=== PATIENT | female | born 1955 | race Caucasian/White ===

== ENCOUNTER 2016-12-03 09:14 | Observation (INO) ==
[2016-12-03] MEDS ORDERED: 0.9 % Sodium Chloride 1,000 ML ONE ×2 (09:31→14:25)
[2016-12-03] MEDS ORDERED: Ondansetron 4 MG/2 ML VIAL ONE (09:31)
[2016-12-03] MEDS ORDERED: Aspirin 81 MG TAB.CHEW PO ONE (09:34)
[2016-12-03] MEDS ORDERED: 0.9 % Sodium Chloride 1,000 ML IVC ONE ×2 (09:39→14:22)
--- NOTE | 2016-12-03 09:40 | Emergency Department Note ---
Disposition Clinical Impression: Acute kidney injury Chest pain Qualifiers: Chest pain type: other chest pain Qualified Code(s): R07.89 - Other chest pain Hypotension Qualifiers: Hypotension type: other hypotension type Qualified Code(s): I95.89 - Other hypotension Disposition: Admitted As Inpatient Condition: Fair Time of Disposition: 12:55 General Adult HPI - General Chief complaint: ED Chest Pain Stated complaint: epigastric pain Time Seen by Provider: 12/03/16 09:25 Source: patient Mode of arrival: ambulatory Limitations: no limitations Nursing Notes Reviewed: Yes Vital Signs Reviewed: Yes - History of Present Illness HPI Narrative: Patient is a 61-year-old female with a Hx of HTN, Hypercholesterolemia and GERD presents with a complaint of chest pain that started at 8:30 this morning. States she left for work and had a pH and she felt fine when she arrived to work she had a stabbing sharp substernal pain that came on suddenly, 8 out of 10 , nonradiating, and nothing makes the pain feel better or worse. She states she has nausea and and SOB, no vomiting. She thinks the pain is related to her GERD. While the patient was in triage she was having a blood pressure recording of 70/50 patient was brought back to the emergency department in the emergency department her blood pressure was still 70/50s we were having difficulty getting a recording. However, we were able to obtain a reading that was 150/80. Patient denies any cardiac history. Onset (ago): hour(s) Location: chest Radiation: non-radiation Pain Severity: moderate Pain Scale: 9 Quality: stabbing Consistency: constant Improves with: nothing Worsens with: nothing Associated symptoms: Reports: chest pain, nausea/vomiting, shortness of breath. Denies: cough, diaphoresis, fever/chills, headaches Treatments Prior to Arrival: none - Related Data Home Medications Medication Instructions Recorded Confirmed Aspirin [Lo-Dose Aspirin EC] 81 mg PO HS 12/03/16 12/03/16 Budesonide/Formoterol 80/4.5 2 gm IH BIDR 12/03/16 12/03/16 [Symbicort 80/4.5] Esomeprazole Magnesium [Nexium] 20 mg PO DAILY 12/03/16 12/03/16 Fexofenadine HCl [Allergy Relief] 180 mg PO DAILY 12/03/16 12/03/16 Gabapentin [Neurontin] 600 mg PO HS 12/03/16 12/03/16 Guaifenesin [Mucinex] 600 mg PO BID PRN 12/03/16 12/03/16 Ipratropium/Albuterol Neb [Duoneb] 3 ml IH Q6HR PRN 12/03/16 12/03/16 Lisinopril [Zestril] 40 mg PO HS 12/03/16 12/03/16 Quetiapine Fumarate [SEROquel] 200 mg PO HS 12/03/16 12/03/16 Ranitidine HCl [Zantac] 300 mg PO DAILY 12/03/16 12/03/16 Rosuvastatin Calcium [Crestor] 10 mg PO HS 12/03/16 12/03/16 hydroCHLOROthiazide 12.5 mg PO HS 12/03/16 12/03/16 [Hydrochlorothiazide] Allergies Allergy/AdvReac Type Severity Reaction Status Date / Time No Known Allergies Allergy Verified 11/25/16 08:03 All systems ED: reviewed and negative except as stated. Constitutional: Denies: fever, chills Cardiovascular: Reports: chest pain, palpitations. Denies: syncope Respiratory: Reports: dyspnea. Denies: cough, wheezes Gastrointestinal: Reports: abdominal pain, nausea. Denies: vomiting Musculoskeletal: Denies: back pain Past Medical History - Past Medical History Medical history: Reports: fibromyalgia, GERD, hypertension Surgical history: Reports: hysterectomy, other Psychiatric history: Reports: bipolar, depression - Social History Smoking Status: Never smoker Smokeless Tobacco Status: No Alcohol use: Reports: none Drug use: Reports: none Physical Exam Upon entering the room the patient appeared to be in moderate distress she was sitting upwards holding her fists to her chest and complaining of a sharp pain that appeared diaphoretic or pale at the time. She was hypotensive at 70/50. - General Limitations: no limitations General appearance: alert, in distress - Head Head exam: atraumatic, normocephalic, normal inspection - Eye Eye exam: Present: normal appearance, PERRL, EOMI - ENT ENT exam: normal exam, normal oropharynx, mucous membranes dry - Neck Neck exam: Present: normal inspection, full ROM, trachea midline. Absent: tenderness - Chest Chest inspection: Present: symmetric chest wall rise, tenderness (Pt had reproducible tenderness) - Respiratory Respiratory exam: Present: normal lung sounds bilaterally, respiratory distress. Absent: wheezes, stridor - Cardiovascular Cardiovascular exam: Present: regular rate, normal rhythm, normal heart sounds - Expanded Cardiovascular Exam Peripheral pulses: 2+: radial (R), radial (L), dorsalis pedis (R), dorsalis pedis (L) - Abdominal Exam Abdominal exam: Present: soft, tenderness, normal bowel sounds. Absent: guarding, rebound, rigidity Abdominal tenderness: Present: diffuse - Extremities Exam Extremities exam: Present: normal inspection, full ROM, normal capillary refill - Neurological Exam Neurological exam: Present: alert, oriented X3 - Psychiatric Psychiatric exam: Present: normal affect, anxious - Skin Skin exam: Present: warm, dry, intact, normal color. Absent: pallor Course Course Narrative: Patient is a 61-year-old female complaining of sudden onset chest pain that is sharp and nonradiating with associated nausea and shortness of breath. As far as we know she does not have a cardiac history. Patient's low blood pressure was 70/50's in triage. I plan to pursue a cardiac workup on this patient also did a CT of angiogram to rule out dissection and CT abdomen. Pt started on 2 L of normal saline. Given zofran IV for nausea. - Reevaluation(s) Reevaluation #1: Pt blood pressure is still 70's/50's after 1 liter of NS. Pain is a 2/[address] for patient's imaging and asked them to take the patient now. Time: 10:22 Reevaluation #2: Pt is back from CT. Blood pressure is 97/51 with second liter of NS going in. Time: 11:09 Reevaluation #3: Pt is resting comfortably in bed sleeping. Her blood pressure is 100/52. Time: 11:33 Additional Reevaluation(s): I spoke with the patient and discussed her lab findings and imaging. I discussed the plan to admit the patient for further evaluation of her chest pain. Patient agrees with the plan. - Consultations Consultation #1: I spoke with Dr. Valle, he agreed to admit the patient. Vital Signs Temperature 97.9 F 12/03/16 09:14 Pulse Rate 93 12/03/16 09:14 Respiratory Rate 18 12/03/16 09:14 Blood Pressure 74/54 12/03/16 09:14 O2 Sat by Pulse Oximetry 96 12/03/16 09:14 Temperature 97.9 F 12/03/16 14:46 Pulse Rate 93 12/03/16 14:46 Respiratory Rate 17 12/03/16 14:46 Blood Pressure 98/49 12/03/16 14:46 O2 Sat by Pulse Oximetry 98 12/03/16 14:46 Oxygen Delivery Oxygen Delivery Nasal Cannula Medical Decision Making - Medical Records Medical records reviewed: Yes I reviewed the patient's medical records. - Lab Data Lab results reviewed: Yes I reviewed the patient's lab results. Result diagrams: 12/03/16 09:35 12/03/16 09:35 Lab Results 12/03/16 12/03/16 12/03/16 Range/Units 09:35 09:35 09:35 WBC 9.6 (4.3-11.1) K/mcL RBC 4.21 (3.82-4.97) M/mcL Hgb 13.0 (11.5-15.4) g/dL Hct 37.6 (35.3-44.9) % MCV 89.3 (83.0-100.0) fL MCH 30.9 (28.0-33.3) pg MCHC 34.6 (31.6-35.5) g/dL RDW 12.1 (11.5-14.5) % Plt Count 309 (140-400) K/mcL MPV 9.3 L (9.4-12.4) fL Immature Gran % 1.0 (0-4) % Seg Neutrophils % 56.3 % Lymphocytes % 30.7 % Monocytes % 7.6 % Eosinophils % 3.7 % Basophils % 0.7 % Neutrophils # 5.4 (1.6-8.9) K/mcL Lymphocytes # 2.9 (0.6-4.6) K/mcL Monocytes # 0.7 (0.0-1.3) K/mcL Eosinophils # 0.4 (0.0-0.6) K/mcL Basophils # 0.1 (0.0-0.2) K/mcL PT 11.4 (9.4-12.1) Seconds INR 1.1 APTT 31.3 (26.0-36.0) Seconds Sodium 136 (136-145) mEq/L Potassium 4.0 (3.5-4.5) mEq/L Chloride 104 (98-109) mEq/L Carbon Dioxide 21 (19-29) mEq/L BUN 29 H (7-20) mg/dL Creatinine 1.54 H (0.57-1.11) mg/dL Est GFR ( Amer) 41 L (> 60) Est GFR (Non-Af Amer) 34 L (> 60) BUN/Creatinine Ratio 19 (6-26) Glucose 140 H (70-99) mg/dL Calculated Osmolality 290 (280-300) Calcium 9.5 (8.6-10.8) mg/dL Total Bilirubin 0.3 (0.2-1.2) mg/dL Direct Bilirubin 0.1 (0.0-0.5) mg/dL Indirect Bilirubin 0.2 (0.0-1.2) mg/dL AST 17 (5-34) Units/L ALT 29 (0-55) Units/L Alkaline Phosphatase 75 (38-126) Units/L Troponin I (0-0.03) ng/mL Serum Total Protein 6.9 (6.0-8.3) g/dL Albumin 3.5 (3.5-5.0) g/dL Globulin 3.4 (2.4-3.5) g/dL Albumin/Globulin Ratio 1.0 L (1.1-2.2) Amylase 43 (25-125) Units/L Lipase 25 (8-78) Units/L 07/19/17 Range/Units 09:35 WBC (4.3-11.1) K/mcL RBC (3.82-4.97) M/mcL Hgb (11.5-15.4) g/dL Hct (35.3-44.9) % MCV (83.0-100.0) fL MCH (28.0-33.3) pg MCHC (31.6-35.5) g/dL RDW (11.5-14.5) % Plt Count (140-400) K/mcL MPV (9.4-12.4) fL Immature Gran % (0-4) % Seg Neutrophils % % Lymphocytes % % Monocytes % % Eosinophils % % Basophils % % Neutrophils # (1.6-8.9) K/mcL Lymphocytes # (0.6-4.6) K/mcL Monocytes # (0.0-1.3) K/mcL Eosinophils # (0.0-0.6) K/mcL Basophils # (0.0-0.2) K/mcL PT (9.4-12.1) Seconds INR APTT (26.0-36.0) Seconds Sodium (136-145) mEq/L Potassium (3.5-4.5) mEq/L Chloride (98-109) mEq/L Carbon Dioxide (19-29) mEq/L BUN (7-20) mg/dL Creatinine (0.57-1.11) mg/dL Est GFR ( Amer) (> 60) Est GFR (Non-Af Amer) (> 60) BUN/Creatinine Ratio (6-26) Glucose (70-99) mg/dL Calculated Osmolality (280-300) Calcium (8.6-10.8) mg/dL Total Bilirubin (0.2-1.2) mg/dL Direct Bilirubin (0.0-0.5) mg/dL Indirect Bilirubin (0.0-1.2) mg/dL AST (5-34) Units/L ALT (0-55) Units/L Alkaline Phosphatase (38-126) Units/L Troponin I 0.01 (0-0.03) ng/mL Serum Total Protein (6.0-8.3) g/dL Albumin (3.5-5.0) g/dL Globulin (2.4-3.5) g/dL Albumin/Globulin Ratio (1.1-2.2) Amylase (25-125) Units/L Lipase (8-78) Units/L - Radiology Data Radiology results reviewed: Yes I reviewed the patient's radiology results. Chest CTA 12/03/16 09:35 IMPRESSION: 1. Mild atherosclerotic disease of the thoracoabdominal aorta, without evidence of aneurysm or dissection. 2. Mild dependent atelectasis within both lungs, without acute intrapulmonary findings. 3. No acute process within the abdomen or pelvis. 4. Diffuse hepatic steatosis. 5. Nonspecific 4.5 cm heterogeneous partially enhancing lesion within the anterior spleen, felt to most likely represent a benign lesion such as hemangioma. However, consider a short-term follow-up contrast-enhanced abdominal CT study in 3- 6 months to ensure stability of this finding. D/ / Gilles Castillo MD / Gilles Castillo MD Interpreting Provider: Gilles Castillo MD Chest X-Ray 12/03/16 09:35 IMPRESSION: No acute cardiopulmonary process identified. D/ / Fede Dykes MD / Fede Dykes MD Interpreting Provider: Fede Dykes MD Abdomen CTA 12/03/16 09:38 IMPRESSION: 1. Mild atherosclerotic disease of the thoracoabdominal aorta, without evidence of aneurysm or dissection. 2. Mild dependent atelectasis within both lungs, without acute intrapulmonary findings. 3. No acute process within the abdomen or pelvis. 4. Diffuse hepatic steatosis. 5. Nonspecific 4.5 cm heterogeneous partially enhancing lesion within the anterior spleen, felt to most likely represent a benign lesion such as hemangioma. However, consider a short-term follow-up contrast-enhanced abdominal CT study in 3- 6 months to ensure stability of this finding. D/ / Gilles Castillo MD / Gilles Castillo MD Interpreting Provider: Gilles Castillo MD - EKG Data EKG #1 EKG attestation: Yes I reviewed and interpreted this EKG. EKG results narrative: I reviewed the patient's patient's EKG. KG is sinus rhythm at a rate of 83 bpm or normal access. Normal intervals, NE intervals 155, QRS duration is 99, QT/ QTc is 391/431. The patient has significant changes when compared to her old EKG done on 10/10/2014. These changes include T-wave inversion in lead V2 and also T-wave flattening in V3. Attestation Statement - Attestation Attestation: I examined this patient and my medical decision-making was reviewed with the Resident Physician. I agree with the documented findings, disposition and treatment plan as described except to the extent set forth below. Patient emergency department with abdominal pain. Onset just prior to arrival. Patient drove herself here. Patient noted to be hypotensive and triage and brought back. Patient rolling in bed. Holding her chest. Systolic blood pressure in the 70s. Plan. Bedside ultrasound does not show any obvious dissection or dilatation of the aorta. Patient is in chronic renal failure. Believe the benefit of contrast to rule out dissection outweighs the risk. CTs were negative for dissection. Patient was feeling better and asking to eat. Blood pressure improved but then dropped again. We will give her another fluid bolus as she responded to it previously. No Infections and no fevers. She is not felt to be septic. She is admitted for further cardiac workup.
[2016-12-03] MEDS: 0.9 % Sodium Chloride 1,000 ML IVC ONE ×2 (09:42→11:05)
[2016-12-03 10:02] LABS: Basophils # 0.1 K/mcL (0.0-0.2); Basophils % 0.7 %; Eosinophils # 0.4 K/mcL (0.0-0.6); Eosinophils % 3.7 %; Hematocrit 37.6 % (35.3-44.9); Lymphocytes # 2.9 K/mcL (0.6-4.6); Lymphocytes % 30.7 %; Mean Corpuscular HGB Conc 34.6 g/dL (31.6-35.5); Mean Corpuscular Hemoglobin 30.9 pg (28.0-33.3); Mean Corpuscular Volume 89.3 fL (83.0-100.0); Mean Platelet Volume 9.3 fL (9.4-12.4); Monocytes # 0.7 K/mcL (0.0-1.3); Monocytes % 7.6 %; Neutrophils # 5.4 K/mcL (1.6-8.9); Platelet Count 309 K/mcL (140-400); Red Blood Count 4.21 M/mcL (3.82-4.97); Red Cell Distribution Width 12.1 % (11.5-14.5); Segmented Neutrophils % 56.3 %
[2016-12-03 10:07] LABS: INR 1.1; Prothrombin Time 11.4 Seconds (9.4-12.1)
[2016-12-03 10:09] LABS: Activated Partial Thrombo Time 31.3 Seconds (26.0-36.0)
[2016-12-03 10:18] LABS: Albumin 3.5 g/dL (3.5-5.0); Bilirubin,Direct 0.1 mg/dL (0.0-0.5); Bilirubin,Indirect 0.2 mg/dL (0.0-1.2); Bilirubin,Total 0.3 mg/dL (0.2-1.2); Calcium 9.5 mg/dL (8.6-10.8); Globulin 3.4 g/dL (2.4-3.5); Total Protein 6.9 g/dL (6.0-8.3)
[2016-12-03] MEDS ORDERED: Ondansetron 4 MG/2 ML VIAL IVP ONE (10:21)
[2016-12-03] MEDS ORDERED: Acetaminophen 325 MG TABLET PO PRN (14:21)
[2016-12-03] MEDS ORDERED: *HR* HYDROcodone/Acet 5/325 mg TABLET PO PRN (14:21)
[2016-12-03] MEDS ORDERED: *HR* Morphine 2 MG/ML SYRINGE IVP PRN (14:21)
[2016-12-03] MEDS ORDERED: Ondansetron 4 MG/2 ML VIAL IVP PRN (14:21)
[2016-12-03] MEDS ORDERED: Naloxone 0.4 MG/ML INJ IVP PRN (14:21)
--- NOTE | 2016-12-03 14:33 | Internal Med History&Physical ---
<Clint Mitchell - Last Filed: 12/03/16 15:23> Date of Encounter: 12/03/16 Time of Encounter: 12:45 Assessment and Plan (1) Chest pain Current visit: Yes Status: Acute Patient presents with new onset of chest pain that she describes as centralized stabbing pain in the epigastric area that is non-radiating. Patient denies any cardiac history or previous issues. EV echocardiogram and nuclear pharm stress test ordered with patient being NPO at midnight for a.m. testing. Patient will also be placed on continuous cardiac telemetry with supplemental O2 with titration if SpO2 < 92%, as well as continuous SpO2 monitoring. Will trend troponins x2. Lipid panel ordered as well as A1c with follow-up labs. Patient to be monitored closely for signs of increased cardiac and/or respiratory distress. Will consider cardiology consult based on the results of the echocardiogram and nuclear stress test. Qualifiers: Chest pain type: other chest pain Qualified Code(s): R07.89 - Other chest pain; R07.8 - Other chest pain (2) SOB (shortness of breath) Current visit: Yes Status: Acute Patient presents with shortness of breath that she reports has become worse with current chest pain symptoms. Patient reports she has had an extremely productive cough since June with excessive sputum production. She also denies the use of home O2 but uses CPAP HS. Will continue CPAP HS and order supplemental O2 with titration if SpO2 < 92% as well as continuous SpO2 monitoring. Sputum culture ordered as well as histoplasma antigen. Patient to be falls precautions/lw-kxea-dnafqm/bed rest with bathroom privileges with assist due to SOB and weakness. Will monitor patient's respiratory status and vital signs. (3) Generalized weakness Current visit: Yes Status: Acute Patient presents with complaint of generalized weakness and fatigue related to her current symptomatology. Patient to be placed as falls precuations/up-with- assist/bed rest with bathroom privileges with assist only due to current weakness, fatigue, and SOB. (4) Acute kidney injury Current visit: Yes Status: Acute Patient presents with acute kidney injury, most likely related to her current hypotensive status. Will continue IV fluids judiciously to help increase BP but not overwork her renal function. Will monitor I&O and daily wegith. Follow-up labs ordered to monitor GFR and renal function. (5) Hypotension Current visit: Yes Status: Acute Patient presents with acute hypotension upon admission to the ED. Patient's initial BP was 70/50. IV fluids helped to bring BP to 85/55. Patient currently takes hydrochlorothiazide and lisinopril for BP at the same time at night. We will decrease lisinopril to 20 mg in the a.m. and continue 12.5 mg of hydrochlorothiazide HS and monitor patient and vital signs. Qualifiers: Hypotension type: other hypotension type Qualified Code(s): I95.89 - Other hypotension (6) Nausea Current visit: Yes Status: Acute Patient presents with acute nausea related to current chest pain and cough. IV Zofran ordered PRN. Diet as tolerated. (7) GERD (gastroesophageal reflux disease) Current visit: Yes Status: Chronic Patient presents with history of chronic GERD. Will hold patient's PO home medications for acid reflux and replace with IVP Protonix 40 mg daily. Qualifiers: Esophagitis presence: esophagitis presence not specified Qualified Code(s) : K21.9 - Gastro-esophageal reflux disease without esophagitis (8) HLD (hyperlipidemia) Current visit: Yes Status: Chronic Patient presents with history of chronic hyperlipidemia. Lipid panel ordered. Will continue patient's Rosuvastatin. Qualifiers: Hyperlipidemia type: pure hypercholesterolemia Qualified Code(s): E78.00 - Pure hypercholesterolemia, unspecified; E78.0 - Pure hypercholesterolemia (9) DVT prophylaxis Current visit: Yes Status: Acute Patient to be placed on DVT prophylaxis due to current admission protocol and bed rest status. Heparin 5,000 units SQ Q8 ordered. Internal Medicine - H&P: HPI Chief complaint: Chest pain/SOB Admitted From: Emergency Dept Plans for Post Hospital Care: Home History of present illness: Ms. Lamin Rodriguez is a 61 year old female who presents from the ED with chief complaint of chest pain and shortness of breath. Patient states that her chest pain is located in the central, epigastric area of her chest and is non- radiating. She states that the chest pain began today. Patient also reports being short of breath with weakness and fatigue since June. Patient states that she has had a productive cough since June and is producing excess sputum. Patient also presented to the ED with hypotension of 70/50. Patient was given IV fluids which helped to bring her BP up to 87/55. Patient reports nausea , weakness, fatigue, chest pain, and SOB. She denies recent illness, fever, chills, vomiting, unusual bleeding, pre-syncope, or syncope. Mrs. Rodriguez has a medical history of fibromyalgia, HTN, HLD, and GERD. She denies any cardiac history or issues previously. Patient currently takes two BP medications ( hydrochlorothiazide and lisinopril). Patient is at moderate risk of cardiac event based on her risk factors of HTN, HLD, and morbid obesity. She will be placed as observation status with orders for an EV echocardiogram, nuclear pharm stress test, continuous cardiac telemetry, trended troponins x2, supplemental O2 with continuous SpO2 monitoring, DuoNebs, Q4, and follow-up labs. Sputum culture also ordered for patient's productive cough as well as histoplasma antigen. Patient will be placed on CPAP HS as she uses this nightly at home. Ms. Rodriguez will be placed as falls precuations/el-jruh-ihiqhf/bed rest with bathroom privileges with assist due to weakness and SOB. Patient to be monitored closely for continued signs of cardiac and/or respiratory distress. Time spent with patient > 40 minutes. Past Med Surg Social Fam HX - Past Medical History Source: patient Medical history: fibromyalgia, GERD, hyperlipidemia, hypertension Psychiatric history: bipolar, depression - Past Surgical History Surgical History: other (Uterine ablation) - Social History Smoking Status: Never smoker Smokeless Tobacco Status: No Alcohol use: none Drug use: none Current living situation: Home, With Family Activity Level: Independent ambulation Recent Out of Country Travel Within the Last 8 Weeks: No Exposure or Possible Exposure to Illness During Travel: No - Family History Father Race: Family Member Ethnicity: Non- Living Status: Age at : 84 Cause of : Accident - Tree fell on him Hx Family Medical Disorders: No Mother Race: Family Member Ethnicity: Non- Living Status: Still Living Hx Family Cardiac Disorders: Yes (HTN, Abdominal Aortic Aneurysm, Heart valve replacement) Brother Race: Family Member Ethnicity: Non- Living Status: Still Living Hx Family Medical Disorders: No Sister Race: Family Member Ethnicity: Non- Living Status: Still Living Hx Family Neurologic Disorders: Yes (Hearing/vision loss on right side) Internal Medicine - H&P: Meds Aspirin [Lo-Dose Aspirin EC] 81 mg PO HS 12/03/16 [History] Budesonide/Formoterol 80/4.5 [Symbicort 80/4.5] 2 gm IH BIDR 12/03/16 [History] Esomeprazole Magnesium [Nexium] 20 mg PO DAILY 12/03/16 [History] Fexofenadine HCl [Allergy Relief] 180 mg PO DAILY 12/03/16 [History] Gabapentin [Neurontin] 600 mg PO HS 12/03/16 [History] Guaifenesin [Mucinex] 600 mg PO BID PRN 12/03/16 [History] Ipratropium/Albuterol Neb [Duoneb] 3 ml IH Q6HR PRN 12/03/16 [History] Lisinopril [Zestril] 40 mg PO HS 12/03/16 [History] Quetiapine Fumarate [SEROquel] 200 mg PO HS 12/03/16 [History] Ranitidine HCl [Zantac] 300 mg PO DAILY 12/03/16 [History] Rosuvastatin Calcium [Crestor] 10 mg PO HS 12/03/16 [History] hydroCHLOROthiazide [Hydrochlorothiazide] 12.5 mg PO HS 12/03/16 [History] Allergies No Known Allergies Allergy (Verified 11/25/16 08:03) All Systems PM: A 10-system review of systems was performed and is negative for pertinent findings except as documented above in the HPI. - Constitutional Constitutional: as per HPI, fatigue, weakness, no chills, no fever(s), no night sweats - EENT Eyes: no change in vision, no discharge, no pain, no photophobia Ears: no ear discharge, no ear pain, no tinnitus Nose, mouth and throat: no dysphagia, no nasal discharge, no neck pain, no sore throat - Breasts Breasts: as per HPI - Cardiovascular Cardiovascular ROS IM: as per HPI, chest pain, dyspnea - Respiratory Respiratory: as per HPI, cough, dyspnea, excessive phlegm production, no wheezing - Gastrointestinal Gastrointestinal: as per HPI, heartburn, nausea - Genitourinary Genitourinary: no change in urinary stream, no dysuria, no flank pain, no hematuria Menstruation: as per HPI, other (Post-uterine ablation) - Musculoskeletal Musculoskeletal ROS IM: as per HPI, myalgias, no numbness, no tingling - Integumentary Integumentary IM: no rash, no unusual bruising - Neurological Neurological ROS: as per HPI, weakness, no confusion, no convulsions, no focal weakness, no numbness, no tingling, no tremor(s) - Psychiatric Psychiatric: as per HPI - Endocrine Endocrine IM: as per HPI - Hematologic/Lymphatic Hematologic/Lymphatic: no easy bruising - Allergic/Immunologic Allergic/Immunologic: as per HPI - Constitutional Vitals: Temp Pulse Resp BP Pulse Ox 97.9 F 105 18 87/55 96 12/03/16 09:14 12/03/16 13:59 12/03/16 14:22 12/03/16 14:22 12/03/16 13:59 General appearance: Present: cooperative, mild distress, A&O X 3, morbidly obese , pleasant, answers questions appropriately - Head Head exam: Present: atraumatic, normocephalic - Eye Eye exam: Present: PERRL, conjuntiva pink, sclera anicteric Pupils: Present: PERRL - ENT ENT exam: Present: normal exam, normal external ear exam - Neck Neck exam general surgery: Present: normal inspection, supple, trachea midline. Absent: lymphadenopathy - Respiratory Respiratory exam: Present: CTAB. Absent: accessory muscle use, rales, rhonchi, wheezes - Cardiovascular Cardiovascular exam: Present: RRR, +S1, +S2. Absent: diastolic murmur, gallop, rubs, systolic murmur - GI/Abdominal GI/Abdominal exam: Present: normal bowel sounds, soft, no peritoneal signs. Absent: distended, tenderness - Rectal Rectal exam: Present: deferred - Additional comments: exam deferred. - Extremities Exam Extremities exam: Present: warm, radial pulses palpable and symetrical. Absent : calf tenderness, cyanotic, pedal edema - Back Exam Back exam: Present: normal inspection - Neurological Exam Neurological exam: Present: CN II-XII intact, oriented X3, no focal deficits. Absent: pronater drift, facial droop, speech deficit - Psychiatric Psychiatric exam: Present: normal affect, normal mood - Skin Skin exam: Present: dry, intact Internal Med - H&P Results - Labs CBC & Chem 7: 12/03/16 09:35 12/03/16 09:35 - EKG Data EKG shows normal: sinus rhythm - EKG Data Prior EKG available for review: yes When compared to previous EKG: there are significant changes Interpretation IM: suggestive of ischemia EKG comments: 12/03/16 14:52 EKG dated 10/10/14 shows sinus rhythm with poor quality affecting ability to interpret. EKG dated 12/03/16 shows sinus rhythm with probable inferior myocardial infarction (probably old). - Diagnostic Studies Chest x-ray Additional comments: Impressions Chest X-Ray 12/03/16 09:35 IMPRESSION: No acute cardiopulmonary process identified. D/ / Fede Dykes MD / Fede Dykes MD Interpreting Provider: Fede Dykes MD CT scan - abdomen Additional comments: Impressions Abdomen CTA 12/03/16 09:38 IMPRESSION: 1. Mild atherosclerotic disease of the thoracoabdominal aorta, without evidence of aneurysm or dissection. 2. Mild dependent atelectasis within both lungs, without acute intrapulmonary findings. 3. No acute process within the abdomen or pelvis. 4. Diffuse hepatic steatosis. 5. Nonspecific 4.5 cm heterogeneous partially enhancing lesion within the anterior spleen, felt to most likely represent a benign lesion such as a hemangioma. However, consider a short-term follow-up contrast-enhanced abdominal CT study in 3- 6 months to ensure stability of this finding. D/ / 12/03/2016 12:28:03 Gilles Catsillo MD / Martha Ramos Interpreting Provider: Gilles Castillo MD CT scan - chest Additional comments: Impressions Chest CTA 12/03/16 09:35 IMPRESSION: 1. Mild atherosclerotic disease of the thoracoabdominal aorta, without evidence of aneurysm or dissection. 2. Mild dependent atelectasis within both lungs, without acute intrapulmonary findings. 3. No acute process within the abdomen or pelvis. 4. Diffuse hepatic steatosis. 5. Nonspecific 4.5 cm heterogeneous partially enhancing lesion within the anterior spleen, felt to most likely represent a benign lesion such as a hemangioma. However, consider a short-term follow-up contrast-enhanced abdominal CT study in 3- 6 months to ensure stability of this finding. D/ / 12/03/2016 12:28:03 Gilles Castillo MD / Martha Ramos Interpreting Provider: Gilles Castillo MD <[email or web address] - Last Filed: 12/03/16 19:30> Date of Encounter: 12/03/16 Internal Medicine - H&P: HPI History of present illness: Ms. Lamin Rodriguez is a 61 year old female All Systems PM: A 10-system review of systems was performed and is negative for pertinent findings except as documented above in the HPI. - Constitutional Vitals: Temp Pulse Resp BP Pulse Ox 98.0 F 93 16 101/65 99 12/03/16 18:26 12/03/16 18:26 12/03/16 18:26 12/03/16 18:26 12/03/16 18:26 Internal Med - H&P Results - Labs CBC & Chem 7: 12/03/16 09:35 12/03/16 09:35 Labs: Cardiac Enzymes 12/03/16 Range/Units 15:53 Troponin I 0.00 (0-0.03) ng/mL - Attending Attestation I have seen and examined pt. I discussed with HISTORIC INTERPRETER regarding the management plan. I agree with the documentation. Pt has improved chest pain. Will f/u echo and stress test in AM. Cardio consult as needed if abnormal echo or stress test.
[2016-12-03] MEDS: Ipratropium/Albuterol Neb 3 ML IH SCH ×3 (15:41→23:57)
[2016-12-03] MEDS: Pantoprazole 40 MG VIAL IVP SCH (17:09)
[2016-12-03] MEDS ORDERED: 0.9 % Sodium Chloride 1,000 ML IVC SCH (18:30)
[2016-12-03] MEDS ORDERED: hydroCHLOROthiazide 25 MG TABLET PO SCH (21:00)
[2016-12-03] MEDS: *HR* Heparin 5,000 UNIT/ML VIAL SQ SCH (21:15)
[2016-12-03] MEDS: Aspirin Enteric Coated 81 MG Tablet PO SCH (21:18)
[2016-12-03] MEDS: Gabapentin 300 MG CAPSULE PO SCH (21:20)
[2016-12-04] MEDS: Ipratropium/Albuterol Neb 3 ML IH SCH ×6 (04:10→23:48)
[2016-12-04] MEDS: *HR* Heparin 5,000 UNIT/ML VIAL SQ SCH ×3 (05:37→20:34)
[2016-12-04] MEDS ORDERED: Regadenoson 0.4 MG/5 ML SYRINGE IVP ONE (05:55)
[2016-12-04 06:51] LABS: Hemoglobin A1C 5.7 %
[2016-12-04 06:57] LABS: Alanine Aminotransferase 26 Units/L (0-55); Albumin 3.4 g/dL (3.5-5.0); Albumin/Globulin Ratio 1.1 (1.1-2.2); Alkaline Phosphatase 71 Units/L (38-126); Aspartate Amino Transferase 16 Units/L (5-34); BUN/Creatinine Ratio 17 (6-26); Bilirubin,Total 0.2 mg/dL (0.2-1.2); Calcium 8.8 mg/dL (8.6-10.8); Carbon Dioxide 28 mEq/L (19-29); Chloride 107 mEq/L (98-109); Chol/HDL Ratio 3.8 (0-4.9); Cholesterol 154 mg/dL (< 200); Globulin 3.2 g/dL (2.4-3.5); Glucose 119 mg/dL (70-99); HDL Cholesterol 41 mg/dL (40-59); LDL Cholesterol,Calculated 73 mg/dL (0-99); Magnesium 2.2 mg/dL (1.6-2.6); Osmolality,Calculated 289 (280-300); Potassium 3.9 mEq/L (3.5-4.5); Sodium 139 mEq/L (136-145); Total Protein 6.6 g/dL (6.0-8.3); Triglycerides 198 mg/dL (< 150); eGFR For African Americans > 60 (> 60); eGFR For Non-African Americans > 60 (> 60)
[2016-12-04 06:58] LABS: Blood Urea Nitrogen 13 mg/dL (7-20)
[2016-12-04 07:02] LABS: Basophils # 0.1 K/mcL (0.0-0.2); Basophils % 0.9 %; Eosinophils # 0.4 K/mcL (0.0-0.6); Eosinophils % 5.1 %; Hematocrit 39.1 % (35.3-44.9); Hemoglobin 12.9 g/dL (11.5-15.4); Immature Granulocytes % 1.4 % (0-4); Lymphocytes # 2.5 K/mcL (0.6-4.6); Mean Corpuscular Hemoglobin 30.8 pg (28.0-33.3); Mean Corpuscular Volume 93.3 fL (83.0-100.0); Mean Platelet Volume 9.5 fL (9.4-12.4); Monocytes # 0.5 K/mcL (0.0-1.3); Monocytes % 6.5 %; Neutrophils # 4.1 K/mcL (1.6-8.9); Platelet Count 297 K/mcL (140-400); Red Blood Count 4.19 M/mcL (3.82-4.97); Red Cell Distribution Width 12.3 % (11.5-14.5); Segmented Neutrophils % 54.1 %
[2016-12-04] MEDS ORDERED: Lisinopril 20 MG TABLET PO SCH ×2 (09:00)
[2016-12-04] MEDS: Loratadine 10 MG TABLET PO SCH (09:00)
--- NOTE | 2016-12-04 09:02 | Electrocardiograph Report ---
[facility] [place] [facility] Test Date: 2016-12-03 Pat Name: Kathy Rodriguez Department: 105 Room: Gender: F Optical Worker: : 1955 Requested By: Vishnu Smith Order Number: [id number] Reading MD: Albaro Andrade MD Measurements Intervals Mobile Rate: 83 P: 17 MD: 155 QRS: -7 QRSD: 99 T: 27 QT: 391 QTc: 431 Interpretive Statements SINUS RHYTHM PROBABLE INFERIOR MYOCARDIAL INFARCTION [35 ms Q WAVE IN II/aVF], PROBABLY OLD Electronically Signed On 12-04-2016 9:00:11 EDT by Albaro Andrade MD
[2016-12-04] MEDS: Pantoprazole 40 MG VIAL IVP SCH ×2 (09:45→14:29)
[2016-12-04] MEDS: Benzonatate 100 MG CAPSULE PO PRN ×2 (15:46→20:35)
[2016-12-04] MEDS: Famotidine 20 MG TABLET PO SCH ×2 (15:46→20:35)
[2016-12-04] MEDS: Loperamide 1 MG/5 ML UDC PO PRN ×2 (15:46→18:24)
--- NOTE | 2016-12-04 17:30 | Internal Med Progress Note ---
Date of Encounter: 12/04/16 Time of Encounter: 13:00 - Assessment and plan (1) Chest pain Current Visit: Yes Status: Acute Assessment and plan: 61 year old female with pmh of fibromyalgia, HTN, HLD, and GERD who presents with chief complaint of chest pain and shortness of breath. Patient states that her chest pain is located in the central, epigastric area of her chest and is non-radiating. She states that the chest pain began today. Patient states that she has had a productive cough since June and is producing excess sputum with associated weakness and fatigue. CTA of chest and abdomen showed mild atherosclerotic disease of the thoracoabdominal [place], without evidence of aneurysm or dissection. No acute process within the abdomen or pelvis. Diffuse hepatic steatosis. Nonspecific 4.5 cm heterogeneous partially enhancing lesion within the anterior spleen. Mild dependent atelectasis Echocardiogram showed LVEF 65%, mild diastolic dysfunction of the left ventricle , no significant valvular dysfunction, trivial pericardial effusion allergy inferior wall of the RV. no tamponade. Patient is currently asymptomatic. Troponins negative 2. EKG was unremarkable. Continue Telemetry, aspirin, statin and add beta tony. Stress test ordered. Qualifiers: Chest pain type: other chest pain Qualified Code(s): R07.89 - Other chest pain; R07.8 - Other chest pain (2) Hypotension Current Visit: Yes Status: Acute Assessment and plan: reSolved. On arrival, blood pressure was 70/50. She received IV fluids with remobilization of her blood pressure. She admits having productive cough since June. She also takes hydrochlorothiazide and lisinopril. Qualifiers: Hypotension type: other hypotension type Qualified Code(s): I95.89 - Other hypotension (3) Acute kidney injury Current Visit: Yes Status: Acute Assessment and plan: Likely prerenal secondary to dehydration from excess productive cough with associated use of hydrochlorothiazide and lisinopril. In ED, Patient was started on IV fluids. Holding lisinopril and hydrochlorothiazide. Resolved. Stop IV fluids. (4) HTN (hypertension) Current Visit: Yes Status: Chronic Assessment and plan: Patient was hypotensive on admission. Holding all antihypertensive medications. Qualifiers: Hypertension type: essential hypertension Qualified Code(s): I10 - Essential (primary) hypertension - Subjective Interval history: patient denies any chest pain. she does have significant cough which has been present since June. - Constitutional Vitals: Temp Pulse Resp BP Pulse Ox 98.1 F 93 18 125/79 95 12/04/16 15:30 12/04/16 15:30 12/04/16 15:53 12/04/16 15:30 12/04/16 15:53 General appearance: Present: cooperative, A&O X 3, morbidly obese, pleasant, no acute distress, answers questions appropriately - Eye Eye exam: Present: PERRL, sclera anicteric - Respiratory Respiratory exam: Present: CTAB - Cardiovascular Cardiovascular exam: Present: RRR - GI/Abdominal GI/Abdominal exam: Present: normal bowel sounds, soft. Absent: distended, tenderness - Extremities Exam Extremities exam: Absent: pedal edema - Back Exam Back exam: Absent: CVA tenderness (L), CVA tenderness (R) - Neurological Exam Neurological exam: Present: alert, oriented X3, no focal deficits, strengths equal and symetr throughout. Absent: facial droop, speech deficit - Skin Skin exam: Absent: rash Internal Medicine: Result - Labs CBC & Chem 7: 12/04/16 05:31 12/04/16 05:31 Labs: Short CBC 12/04/16 Range/Units 05:31 WBC 7.7 (4.3-11.1) K/mcL Hgb 12.9 (11.5-15.4) g/dL Hct 39.1 (35.3-44.9) % Plt Count 297 (140-400) K/mcL Neutrophils # 4.1 (1.6-8.9) K/mcL BMP 12/04/16 05:31 Sodium 139 Potassium 3.9 Chloride 107 Carbon Dioxide 28 BUN 13 D Creatinine 0.75 D Glucose 119 H Calcium 8.8 Cardiac Enzymes 12/03/16 Range/Units 22:07 Troponin I 0.00 (0-0.03) ng/mL Liver Function 12/04/16 Range/Units 05:31 Total Bilirubin 0.2 (0.2-1.2) mg/dL AST 16 (5-34) Units/L ALT 26 (0-55) Units/L Alkaline Phosphatase 71 (38-126) Units/L Albumin 3.4 L (3.5-5.0) g/dL - ABG Interpretation ABG results: PT/INR, D-dimer PT 11.4 Seconds (9.4-12.1) 12/03/16 09:35 Consult Discharge Plan - Plan Referrals: Quinn Mojica MD [Primary Care Provider] -
[2016-12-04] MEDS: Gabapentin 300 MG CAPSULE PO SCH (20:35)
[2016-12-04] MEDS: Aspirin Enteric Coated 81 MG Tablet PO SCH (20:35)
[2016-12-05] MEDS: Ipratropium/Albuterol Neb 3 ML IH SCH ×3 (04:01→11:28)
[2016-12-05] MEDS: *HR* Heparin 5,000 UNIT/ML VIAL SQ SCH (05:33)
--- NOTE | 2016-12-05 09:46 | Nuclear Medicine Stress Report ---
Regadenoson Nuclear 2 day Name: Kathy Rodriguez Date of Study: 12/04/2016 Date: 1955 Ht: 61.0 in Medical Record#: [id number] Age: 61 Wt: 232.0 lb Gender: Female Order #: [id number] Location: [facility] Room: [facility] Supervising Provider: Britany Mclean CNP Reading Physician: Trina Douglass DO Ordering Physician: Nayely Floyd CNP Primary Care Physician: Quinn Mojica MD Stress Technologist: Nely Bravo LIFE MANAGER, CCT Curriculum And Assessment Director: Winnie Felix Indications: Chest Pain Impression: Perfusion imaging was negative for ischemia or infarct. Pharmacologic ECG was negative for ischemia at the level of heart rate achieved. Gated EF = >70%. History: Hypertension Hypercholesteremia Stress Test Summary: Stress Test Type: Pharmacologic Regadenoson 0.4mg/5ml given IV Baseline Information: Initial Heart Rate: 63 Blood Pressure: 104/66 Stress Information: Test Terminated Due to (primary): As per protocol Maximum Blood Pressure: 102/70 Maximum Heart Rate: 102 Percent Maximum Heart Rate Achieved: 65 Double Product: [id number] METS Reached: 1 Symptoms: No chest symptoms Nuclear Summary: SPECT myocardial perfusion imaging using Tc99m Sestamibi given intravenously was performed at rest and following cardiac stress testing. The resting images were obtained following initial dose of 31.6 mCi. Following stress an additional dose of 33.3 mCi was given at peak exercise or 30 seconds post regadenoson infusion. Medication Given: Time Medication Dose Units Route Findings: Stress Note * Resting ECG demonstrated normal sinus rhythm. * Pharmacologic stress ECG is negative for ischemia at level of heart rate achieved. * No arrhythmias were noted during stress. Single PVC during recovery. * Patient had no chest pain during stress. Hemodynamic responses * Normal hemodynamic responses to pharmacologic stress. Study Quality * Study quality is good. Gated EF > 70% * Gated EF > 70%. Left Ventricle * The left ventricle is not dilated. TID * No evidence of transient ischemic dilatation. Lung Uptake * There is no evidence of increase lung uptake. NORMALS * Normal wall motion. * Normal segmental perfusion in stress. * Normal Segmental Perfusion in rest. Updated by Trina Douglass on 12/05/2016 9:40:30 AM electronically signed on 12/05/2016 9:41:46 AM with status of Final
[2016-12-05] MEDS: Benzonatate 100 MG CAPSULE PO PRN (10:10)
[2016-12-05] MEDS: Pantoprazole 40 MG VIAL IVP SCH (10:11)
[2016-12-05] MEDS: Famotidine 20 MG TABLET PO SCH (10:11)
[2016-12-05] MEDS: Loratadine 10 MG TABLET PO SCH (10:11)
[2016-12-05 11:52] VITALS: BP 102/53
--- NOTE | 2016-12-05 13:51 | Discharge Summary ---
Date of Encounter: 12/06/16 Time of Encounter: 13:48 - Discharge Diagnosis (1) Chest pain Priority: Primary Status: Acute Qualifiers: Chest pain type: other chest pain Qualified Code(s): R07.89 - Other chest pain; R07.8 - Other chest pain (2) Hypotension Priority: Primary Status: Acute Qualifiers: Hypotension type: other hypotension type Qualified Code(s): I95.89 - Other hypotension (3) Acute kidney injury Priority: Primary Status: Acute (4) HTN (hypertension) Priority: Secondary Status: Chronic Qualifiers: Hypertension type: essential hypertension Qualified Code(s): I10 - Essential (primary) hypertension (5) Morbid obesity with BMI of 40.0-44.9, adult Priority: Secondary Status: Chronic Comments: bmi 43. Patient encouraged to lose weight. Follow-up in the outpatient clinic for weight loss program. - Discharge Medications Prescriptions: Benzonatate [Tessalon] 200 mg PO TID PRN #30 PRN Reason: Cough Metoprolol [Lopressor] 12.5 mg PO BID #30 tab Home Medications: Aspirin [Lo-Dose Aspirin EC] 81 mg PO HS 12/03/16 [History] Budesonide/Formoterol 80/4.5 [Symbicort 80/4.5] 2 gm IH BIDR 12/03/16 [History] Esomeprazole Magnesium [Nexium] 20 mg PO DAILY 12/03/16 [History] Fexofenadine HCl [Allergy Relief] 180 mg PO DAILY 12/03/16 [History] Gabapentin [Neurontin] 600 mg PO HS 12/03/16 [History] Ipratropium/Albuterol Neb [Duoneb] 3 ml IH Q6HR PRN 12/03/16 [History] Quetiapine Fumarate [Seroquel] 200 mg PO HS 12/03/16 [History] Ranitidine HCl [Zantac] 300 mg PO DAILY 12/03/16 [History] Rosuvastatin Calcium [Crestor] 10 mg PO HS 12/03/16 [History] Benzonatate [Tessalon] 200 mg PO TID PRN #30 12/05/16 [Rx] Metoprolol [Lopressor] 12.5 mg PO BID #30 tab 12/05/16 [Rx] Allergies/Adverse Reactions: Allergies No Known Allergies Allergy (Verified 11/25/16 08:03) Procedures/tests Complete & Pending: Procedures Performed prior 72 hours Category Date Time Status NM kristian perf SPECT multi [NM] Routine Exams 12/03/16 14:27 Taken EV echocardiogram Routine Y 12/03/16 14:26 Completed SP pharm nuclear stress Routine Y 12/04/16 07:30 Completed Date of admission: 12/03/16 13:24 Primary care physician: Quinn Mojica MD - Patient Status Disposition: Home, Self-Care Condition: Good Functional capacity at discharge: independent ambulation Overall status at discharge: patient is progressing back to baseline - Discharge Instructions Instructions: Benzonatate (By mouth), Metoprolol (By mouth), Chest Pain (GEN), Acute Kidney Injury (GEN) Follow Up With: Quinn Mojica MD [Primary Care Provider] - 12/15/16 3:00 pm Additional Instructions: CHECK your blood pressure twice daily in the morning and evening. resume your home dose of lisinopril when BP >140/90. - Diet and Activity Activity: resume usual activities as tolerated Diet: low fat, low cholesterol, low salt diet Interval History: Patient has no complaints. No chest pain. No shortness of breath. She is eager to go home. Hospital course: Ms. Lamin Rodriguez is a 61 year old female with pmh of fibromyalgia, HTN, HLD, and GERD who presents with chief complaint of chest pain and shortness of breath. Patient states that her chest pain is located in the central, epigastric area of her chest and is non-radiating. She states that the chest pain began today. Patient states that she has had a productive cough since June and is producing excess sputum with associated weakness and fatigue. CTA of chest and abdomen showed mild atherosclerotic disease of the thoracoabdominal [place], without evidence of aneurysm or dissection. No acute process within the abdomen or pelvis. Diffuse hepatic steatosis. Nonspecific 4.5 cm heterogeneous partially enhancing lesion within the anterior spleen. Mild dependent atelectasis Echocardiogram showed LVEF 65%, mild diastolic dysfunction of the left ventricle , no significant valvular dysfunction, trivial pericardial effusion allergy inferior wall of the RV. no tamponade. Patient remained asymptomatic during the hospitalization. No telemetry events. Troponins negative 2. EKG was unremarkable. Stress test was negative. In our ED, BP was 70/50 and labs revealed acute kidney injury. She received IV fluid with resolution of her hypotension and normalization of kidney function. Her BP medications were adjusted at discharge. She was advised to follow a low- salt diet at discharge. PLAN: Patient instructed to check her blood pressure daily. Follow-up with primary care physician for hypertension. - Time Spent with Patient Total time spent providing and/or coordinating discharge services: - Constitutional Vitals: Temp Pulse Resp BP Pulse Ox 98.5 F 85 16 102/53 98 12/05/16 11:49 12/05/16 11:49 12/05/16 11:49 12/05/16 11:49 12/05/16 12:44 General appearance: Present: cooperative, A&O X 3, morbidly obese, pleasant, no acute distress, answers questions appropriately - Respiratory Respiratory exam: Present: CTAB - Cardiovascular Cardiovascular exam: Present: RRR - GI/Abdominal GI/Abdominal exam: Present: normal bowel sounds, soft. Absent: distended, tenderness - Extremities Exam Extremities exam: Absent: pedal edema - Back Exam Back exam: Absent: CVA tenderness (R) - Neurological Exam Neurological exam: Present: alert, normal gait, oriented X3, no focal deficits, strengths equal and symetr throughout. Absent: facial droop, speech deficit - Skin Skin exam: Absent: rash
== END 2016-12-05 14:38 | disposition home or self-care (01) ==
LOC: 3BNU 09:14 → EMEROO 09:14 → SUATTDRO 13:24 → 3BNU 14:35
PROVIDERS: ADMIT Internal Medicine; ATTEND Internal Medicine